=== PATIENT | female | born 1995 | race Caucasian/White ===

== ENCOUNTER 2016-06-17 06:20 | Observation (INO) ==
[2016-06-17] MEDS ORDERED: SODIUM CHLORIDE 0.9% 1,000 ML IV STA ×2 (06:37→13:49)
[2016-06-17] MEDS ORDERED: PROMETHAZINE 25 MG/1 ML VIAL IM STA (06:37)
[2016-06-17] MEDS ORDERED: HYDROmorphone 2 MG/1 ML VIAL IV STA ×3 (06:37→11:24)
[2016-06-17] MEDS ORDERED: PROMETHAZINE 25 MG/1 ML VIAL ONE (06:38)
[2016-06-17] MEDS ORDERED: HYDROmorphone 2 MG/1 ML VIAL ONE ×3 (06:39→11:28)
--- NOTE | 2016-06-17 06:53 | Emergency Department Note ---
Carmen Venegas Gwan, am scribing for, and in the presence of, Brad Mitchell MD 06:39 . Paula Venegas James D, MD, personally performed the services described in this documentation, ascribed by Alexander Morales in my presence, and it is both accurate and complete 653 . Arrival - Arrival Stated Complaint: kidney stones Mode of Arrival: Ambulatory Limitations: No Limitations Source: Patient, Family, Old Records Reviewed, RN Notes Reviewed - History of Present Illness HPI Narrative: Pt is a 20 y/o female, with a hx of kidney stones, who presents to the ED with a c/o flank pain and N/V. Patient was last seen 06/16/2016 for same reason and was discharged home with prescription medication and instructions to follow up with Dr. Edgardo Mendez and to increase fluid intake. Mother stated that pt takes her prescribed with no successful due to constant vomiting. Patient had an episode of vomiting yesterday afternoon about 5 PM. This returned this morning about 3 AM and according to the patient she has been vomiting ever since. Patient denies having a PCP. She was not actively vomiting during exam. No other problems/complaints reported in ED. Onset (ago): day(s) Consistency: constant Severity: moderate Allergies/Adverse Reactions: Allergies Allergy/AdvReac Type Severity Reaction Status Date / Time No Known Allergies Allergy Verified 06/17/16 06:29 Home Medications: Home Medications Medication Instructions Recorded Confirmed Type HYDROmorphone TAB [Dilaudid Tab] 2 mg PO Q6H PRN #20 tablet 06/16/16 06/17/16 Rx Ondansetron [Ondansetron Odt] 4 mg PO Q4H PRN #10 tab.rapdis 06/16/16 06/17/16 Rx Dextroamphetamine/Amphetamine 20 mg PO QAM 06/17/16 06/17/16 History [Adderall 20 mg Tablet] Omeprazole [Omeprazole] 20 mg PO QAM 06/17/16 06/17/16 History Review of System - Review of System 12 point system: reviewed and no additional remarkable complaints except as stated - Review of System Constitutional: Absent: chills, fever Eyes: Absent: discharge, pain Head/Ears/Nose/Throat: Absent: earache Respiratory: Absent: cough Gastrointestinal: Present: as per HPI, abdominal pain, nausea. Absent: vomiting , diarrhea Musculoskeletal: Present: as per HPI, lower back pain. Absent: arm pain, back pain, leg pain, neck pain Neurological: Absent: headache, weakness Psychiatric: Absent: anxiety Medical,Surgical,& Family Hx - Medical History Psychological: History of: ADHD Genitourinary: History of: Kidney Stones - Social History Smoking Status: Never smoker Exam Physical Examination: GENERAL: This is a well-nourished, well-developed white female in no apparent distress. VITAL SIGNS: HEENT: Head is normocephalic and atraumatic. Pupils are equally round and reactive to light. Extraocular movement are intact. Oropharynx is benign with moist mucous membranes. NECK: Neck is soft and supple without tenderness. There are no masses. There is no lymphadenopathy. LUNGS: Lungs are clear to auscultation bilaterally. Chest rises symmetrically. There is no chest wall tenderness. CV: Heart is regular rate and rhythm without murmurs, rubs, or gallops. ABDOMEN: Abdomen is soft, non-tender to palpation. There are no abnormal masses palpated. There is no organomegaly. Bowel sounds are present and active. SKIN: Skin is warm and dry. No rash. EXTREMITIES: Patient has full range of motion without tenderness. There is no pedal edema. NEUROLOGIC: Awake, alert, and oriented x4. Cranial nerves II through XII are grossly intact. There are no motorsensory deficits. PSYCHIATRIC: Normal affect. Normal mood. Vital Signs: Vital Signs Temperature 97 F L 06/17/16 06:33 Pulse Rate 83 06/17/16 10:00 Respiratory Rate 20 06/17/16 10:00 Blood Pressure 97/60 06/17/16 10:00 O2 Sat by Pulse Oximetry 97 06/17/16 10:00 Course - Consultations Consultation #1: Called Dr. Edgardo Mendez. Discussed with him when he completed his surgical case at 11:25 AM. Patient will be admitted to his service. Time: 08:30 Disposition Clinical Impression: Right ureteral stone Case discussed with: patient, patient's family Disposition: Still a Patient Condition: Stable Time of Disposition: 11:26
[2016-06-17] MEDS ORDERED: ONDANSETRON 4 MG/2 ML VIAL IV STA (11:25)
[2016-06-17] MEDS ORDERED: ONDANSETRON 4 MG/2 ML VIAL ONE (11:27)
[2016-06-17] MEDS ORDERED: ACETAMINOPHEN 325 MG TABLET PO PRN (14:24)
[2016-06-17] MEDS ORDERED: ONDANSETRON 4 MG/2 ML VIAL IV PRN (14:24)
[2016-06-17] MEDS ORDERED: PROMETHAZINE 25 MG/1 ML VIAL IM PRN (14:24)
[2016-06-17] MEDS ORDERED: KETOROLAC 15 MG/1 ML VIAL IV SCH (14:24)
[2016-06-17] MEDS ORDERED: HYDROmorphone PCA 30 MG/30 ML SYRINGE IV SCH (14:24)
[2016-06-17] MEDS: SODIUM CHLORIDE 0.45% 1,000 ML IV SCH ×2 (15:06→22:22)
[2016-06-17] MEDS: diphenhydrAMINE 50 MG/1 ML VIAL IV PRN ×2 (16:43→20:21)
--- NOTE | 2016-06-17 18:02 | Urology History & Physical ---
Assessment and Plan - Time spent with patient Time spent with patient: Greater than 30 minutes (1) Right ureteral stone Status: Acute Assessment and plan: Pain control and hydration. I will add Flomax. I will check a KUB in the morning. Hopefully she will feel better and we cannot discharge her in the morning. I briefly mentioned lithotripsy we tentatively will plan that for Wednesday. Current Visit: Yes - EENT Nose, mouth and throat: Present: as per HPI - Cardiovascular Cardiovascular: Present: as per HPI - Respiratory Respiratory: Present: as per HPI - Gastrointestinal Gastrointestinal: Present: as per HPI - Genitourinary Genitourinary: Present: flank pain (Right) History of Present Illness Chief complaint: Right ureteral calculus History of present illness: Ms. Butler is a 20 year old female who presented to emergency room for the second time on the day of admission with right flank pain. She was seen the day before with ureteral stone given Dilaudid and Zofran. On the day of admission she began the cycle of nausea vomiting and was not able to keep her pain medicine down to control her pain and then had the severe pain. So I do not think it with the Dilaudid not working I just do not think she could keep the Dilaudid down and get it enough in her to control her pain. So therefore she is admitted for hydration and pain control. CT scan the other day shows a C5-6 millimeter stone in the proximal right ureter. Her test was negative. Home Medications Medication Instructions Recorded Confirmed Type HYDROmorphone TAB [Dilaudid Tab] 2 mg PO Q6H PRN #20 tablet 06/16/16 06/17/16 Rx Ondansetron [Ondansetron Odt] 4 mg PO Q4H PRN #10 tab.rapdis 06/16/16 06/17/16 Rx Dextroamphetamine/Amphetamine 20 mg PO QAM 06/17/16 06/17/16 History [Adderall 20 mg Tablet] Omeprazole [Omeprazole] 20 mg PO QAM 06/17/16 06/17/16 History Allergies Allergy/AdvReac Type Severity Reaction Status Date / Time No Known Allergies Allergy Verified 06/17/16 06:29 Medical,Surgical,& Family Hx - Medical History Psychological: History of: ADHD No history of: Anxiety Disorders, Behavior Problems, Bipolar Disorder, Depression, Previous Suicide Attempt, Psychiatric/Substance Abuse Tx, Schizophrenia, Violent Behavior, Psychiatric Problems Genitourinary: History of: Kidney Stones - Surgical History Cardiac Surgeries: Patient Denies: Cardiac Catheterization Thoracic Surgeries: Patient denies;: Organ Transplant HEENT Surgeries: Surgical HX of: Tonsilectomy & Adenoidectomy Patient denies: Eye Surgery Reproductive Surgeries: Patient denies;: Genitourinary Surgery - Social History Smoking Status: Never smoker Frequency of Alcohol Use: None Type of Drug Use: None Exam - Constitutional Vitals: Period Temp Pulse Resp BP Sys/Edouard Pulse Ox Last 24 Hr 99.3 F 65-98 20-20 93-119/51-72 95-99 General appearance: normal weight, mild distress - Head Head exam: Present: normal inspection, normocephalic, atraumatic - Eye Eye exam: Present: EOMI - ENT ENT exam: Present: normal exam - Neck Neck exam: Present: normal inspection - Respiratory Respiratory exam: Present: clear to auscultation bilaterally - Cardiovascular Cardiovascular exam: Present: regular rate and rhythm - GI/Abdominal GI/Abdominal exam: Present: tenderness (Right upper quadrant), soft. Absent: mass, psoas sign, rebound - Genitourinary Genitourinary: other (Deferred)
[2016-06-17] MEDS: TAMSULOSIN 0.4 MG CAPSULE PO SCH (18:27)
[2016-06-18] MEDS: diphenhydrAMINE 50 MG/1 ML VIAL IV PRN (00:57)
[2016-06-18] MEDS: SODIUM CHLORIDE 0.45% 1,000 ML IV SCH (06:06)
--- NOTE | 2016-06-18 07:23 | Discharge Summary ---
Hospital Course - Hospital Course Hospital Course: 20-year-old white female admitted with intractable nausea and pain not being able to manage this as an outpatient with a ureteral stone. She had seen in the emergency room twice. She has had a stable night and feels better. We will discharge her. I have discussed treatment. I have recommended ESWL. This procedure was explained at length and in detail. Risks, complications, outcomes, sequelae, prognosis and alternative therapy was discussed. Patient understood this and agreed to proceed. We will discharge her. We will schedule this at [facility] on 06/22/16 as an outpatient. - Time spent with patient Time with patient DS: Greater than 30 minutes Diagnosis - Discharge Diagnosis (1) Right ureteral stone Status: Acute Discharge Plan - Discharge Data Disposition: Disch To Home/Self Care Condition at Discharge: Stable Discharge Diet: regular diet Activity: resume usual activities as tolerated Hygiene: no restrictions Weight Bearing at Discharge: full weight bearing Driving: no restrictions Contact your physician if you experience:: fever over 101, pain uncontrolled by pain medications - Discharge Medications New Tamsulosin [Flomax] 0.4 mg PO DAILY capsule Continue HYDROmorphone TAB [Dilaudid Tab] 2 mg PO Q6H PRN #20 tablet PRN Reason: Abdominal Pain Ondansetron [Ondansetron Odt] 4 mg PO Q4H PRN #10 tab.rapdis PRN Reason: Nausea Omeprazole 20 mg PO QAM Dextroamphetamine/Amphetamine [Adderall 20 mg Tablet] 20 mg PO QAM - Follow Up or Referral - Forms/Instructions Additional Discharge Instructions: Patient to report to same day surgery on 06/22 at 06 100 for ESWL. Exam - Constitutional Vitals: Period Temp Pulse Resp BP Sys/Edouard Pulse Ox Last 24 Hr 98.1 F-99.3 F 65-98 16-20 93-124/51-79 93-99 Discharge Results Procedures and tests throughout hospitalization: Pending Orders 06/18/16 04:00 XR KUB IN AM DS: Provider Date of admission: 06/17/16 11:26 Primary care physician: . No PCP Attending physician on admission: Edgardo Mendez MD Consults: 06/17/16 14:29 Consult to Pharmacy [CONS] Routine Reason for Pharmacy Consult: Adjust Meds Renal Funct Discharging clinician: Edgardo Mendez MD
[2016-06-18 07:53] VITALS: BP 89/44
[2016-06-18] MEDS: TAMSULOSIN 0.4 MG CAPSULE PO SCH (08:17)
--- NOTE | 2016-06-18 11:58 | XRay Report ---
Exam: XR KUB Date: 06/18/2016 Indication: Kidney stones Comparison: 06/16/2016 Technical: Supine imaging Findings: Moderate fecal debris is present in the right colon. The liver shadow is unremarkable. The spleen and renal shadows are obscured. Faint calculi clearly in the right upper abdomen measuring approximately 4.9 mm bony structures are intact. Impression: 1. 4.9 mm calcification present in the right upper abdomen at the L2-3 interspace level 2. Mild constipation PROCEDURE INTERPRETED AT [facility] DEPARTMENT OF RADIOLOGY Final Report Signed by: Dr. Candido Guerrero
== END 2016-06-18 08:45 | disposition home or self-care (01) ==
LOC: N.ED 06:20 → N.EDINP 06:20 → N.5E 14:23
PROVIDERS: ADMIT Urology; ATTEND Urology